=== PATIENT | female | born 1940 | race Caucasian/White ===

== ENCOUNTER → 2020-07-15 13:15 | Outpatient (CLI) | payer MEDICARE, SELFPAY ==
--- NOTE | 2020-07-15 | DI.RAD.S_ITS ---
PROCEDURE: FL UPPER GI W AIR INDICATIONS: NAUSEA AND VOMITING, INTRACTABLE COMPARISON: [facility], CT, CT LUMBAR SPINE WO CON, 02/13/2016, 17:48. FINDINGS: KUB: Clips in the left abdomen. Preprocedural dowel pin man film demonstrates a normal bowel gas pattern. No suspicious abdominal calcifications. Visualized solid organ contours appear normal. Bony structures appear unremarkable. Esophagus: Esophageal mucosa is normal on air-contrast views. On single-contrast views, there is mildly diminished esophageal peristalsis. Intermittent tertiary contractions are seen. No strictures, extrinsic mass effects, or diverticula. Small sliding-type hiatal hernia. Moderate to severe gastroesophageal reflux to the level of the upper thorax. There is normal transit of a calibrated barium tablet through the esophagus. Stomach: The stomach is normally distensible, with normal rugal fold thickness. No mucosal masses or ulcers. Pylorus and duodenal bulb appear normal in morphology. Duodenal folds are normal in thickness as well. IMPRESSION: 1. Mild presbyesophagus. 2. Small sliding-type hiatal hernia. 3. Moderate to severe gastroesophageal reflux with provocative maneuvers. Dictated by: Geronimo Faria M.D. on 07/15/2020 at 15:09 Approved by: Geronimo Faria M.D. on 07/15/2020 at 15:12
== END ==
PROVIDERS: PCP Registered Nurse; Referring Provider Registered Nurse; Visit Provider Surgery
DX: R11.2 Nausea with vomiting, unspecified (principal); K22.8 Other specified diseases of esophagus; K44.9 Diaphragmatic hernia without obstruction or gangrene; K21.9 Gastro-esophageal reflux disease without esophagitis
CPT/HCPCS: 74246